=== PATIENT | female | born 2000 | race Caucasian/White ===

== ENCOUNTER → 2021-06-20 12:19 | Outpatient (CLI) | payer OTHER, SELFPAY ==
[2021-06-21 09:31] LABS: Strep Grp B PCR NEG for Grp B Strep
== END ==
PROVIDERS: Referring Provider Obstetrics & Gynecology; Visit Provider Obstetrics & Gynecology
DX: Z34.03 Encounter for supervision of normal first pregnancy, third trimester (principal); Z3A.36 36 weeks gestation of pregnancy
CPT/HCPCS: 87653

== ENCOUNTER → 2021-06-27 11:04 | Outpatient (CLI) | payer OTHER, SELFPAY ==
[2021-06-27 13:27] LABS: Hematocrit 30.3 % (36-46); Hemoglobin 10.1 g/dL (12.0-16.0)
[2021-06-27 14:07] LABS: GTT (PREG) 1 Hour PP 50gm Dose 121 mg/dL (76-139)
== END ==
PROVIDERS: Referring Provider Obstetrics & Gynecology; Visit Provider Obstetrics & Gynecology
DX: Z34.03 Encounter for supervision of normal first pregnancy, third trimester (principal)
CPT/HCPCS: 36415; 82950; 85014; 85018

== ENCOUNTER 2021-07-18 11:19 | Outpatient (CLI) | payer OTHER, SELFPAY | END 2021-07-18 12:11 | disposition home or self-care (01) | LOC: LABOR 11:24 → OB 07-19 09:53 | PROVIDERS: Referring Provider Obstetrics & Gynecology; Visit Provider Obstetrics & Gynecology | DX: O48.0 Post-term pregnancy (principal); Z3A.40 40 weeks gestation of pregnancy | CPT/HCPCS: G0378; G0379 ==

== ENCOUNTER 2021-07-19 04:46 | Inpatient (IN) | payer OTHER, SELFPAY ==
[2021-07-19 05:52] VITALS: BP 129/88
[2021-07-19 06:14] LABS: Add Manual Diff / Slide Review NO; Basophils Absolute Auto 0 /uL (0-100); Basophils Percent Auto 0.5 % (0-2); Eosinophils Absolute Auto 100 /uL (0-450); Eosinophils Percent Auto 0.7 % (2-4); Hematocrit 35.6 % (36-46); Hemoglobin 11.5 g/dL (12.0-16.0); Lymphocytes Absolute Auto 1000 /uL (1100-4500); Lymphocytes Percent Auto 13.3 % (25-40); Mean Corpuscular HGB Conc 32.4 % (30-36); Mean Corpuscular Hemoglobin 26.6 PG (26-34); Mean Corpuscular Volume 82.1 fL (80-100); Monocytes Absolute Auto 900 /uL (0-900); Monocytes Percent Auto 11.5 % (3-14); Neutrophils Absolute Auto 5800 /uL (1500-7000); Platelet Count 251 X10^3/uL (150-400); Red Blood Cell Count 4.34 X10^6/uL (4.0-5.2); Red Cell Distribution Width 20.9 % (11.6-14.8); White Blood Cell Count 7.8 X10^3/uL (4.5-11.0)
[2021-07-19 06:25] LABS: COVID19 -Nasal RAPID Negative (Negative)
[2021-07-19 07:29] LABS: Anisocytosis 1+
[2021-07-19] MEDS: ONDANSETRON 4 MG/2 ML INJ IV ×2 (08:37→18:16)
[2021-07-19] MEDS: LACTATED RINGERS 1,000 ML 100 ML IV ×2 (08:41→09:45)
--- NOTE | 2021-07-19 09:26 | P.HPOB_ITS ---
OB HPI Date/Time Date of admission: 07/19/21 Date Patient Seen: 07/19/21 Time Patient Seen: 08:30 History of Present Condition Chief complaint: maternity DAVID Calculator Estimated Delivery Date Method Current WG Current Estimate 07/17/21 Ultrasound #1 40w 3d Other Estimates 07/15/21 LMP (Certain) 40w 5d Estimated Gestational Age (weeks): 40 : 1 Para: 0 Narrative: This patient is a 20yo @40+2 presenting in spontaneous labor. The patient reports that contractions began overnight and have slowly intensified. She denies decreased movement, VB, LOF, or PIH symptoms. Her has been obstetrically uncomplicated, though she presented for care at 17 weeks, moved at the end of her second trimester to [facility] from [place], and presented to transfer care at 36 weeks. She has no other significant medical, surgical, or family history. care: limited care and initiated at week # (17) Dating criteria OB: based on 2nd trimester US only Ultrasounds: normal mid trimester US Obstetrical complications: none Medical complications OB: none Preadmission Labs Last OB Lab Results: Blood Type A Positive 07/19/21 05:45 07/19/21 Antibody Screen Negative 07/19/21 05:45 07/19/21 Hematocrit 35.6 % (36-46) L 07/19/21 05:45 07/19/21 Hemoglobin 11.5 g/dL (12.0-16.0) L 07/19/21 05:45 07/19/21 Glucose 1 Hour 121 mg/dL (76-139) 06/27/21 12:10 06/27/21 Group B Streptococcus (PCR) Neg for grp b strep 06/20/21 13:34 06/20/21 -: Urine: negative External Labs Blood type OB HPI: A (+) positive -: Antibody screen: negative, HBsAG: negative, HIV: negative, RPR/VDLR: negative, Chlamydia screen: negative, Gonorrhea screen: negative, GBS status: negative and Urine: negative -: Rubella: immune and Varicella: immune Evaluation Evaluation Baseline heart rate: 135 Variability: Moderate (11-25) monitor accelerations: Present Monitor Decelerations: Absent Contraction Frequency (minutes): 3 Category of Tracing: Reactive Status: Category l Dilation (cm): 6 Effacement (%): 100 Dilation: >/=5 cm Effacement: >/=80% station: -1 Position of cervix: mid Consistency: medium Rodríguez score: 10 PFSH Medical History ADHD (~2018) Anorexia nervosa (~2015) Anxiety (~2015) Depression (~2015) PTSD (post-traumatic stress disorder) (~2015) Surgical History Anesthesia H/O wisdom tooth extraction (~2013) History of tonsillectomy (~2015) Family History Mother Mental health problem Brother Mental health problem Sister Mental health problem Sister Mental health problem Grandmother Diabetes mellitus COPD (chronic obstructive pulmonary disease) Social History marital status: household members: spouse pets and animals: No occupational status: unemployed current occupational exposures/hazards: No seatbelt use: always water heater temp set < 120 deg: Yes working smoke detector in home: Yes fire extinguisher in home: Yes carbon monox detector in home: Yes firearms in home: No do you feel safe at home: Yes Smoking Status: Former smoker alcohol intake: former substance use type: marijuana (stopped with ) well-balanced diet: daily or most days daily servings fruits/ve-4 caffeine: Yes (understands less than 200mg) Type(s) of exercise: walking (earlier in now at 36 weeks feet get swolle) Meds Home Medications and Allergies Home Medications Medication Instructions Recorded Confirmed Type prenat.vits,tammy,[id number] 1 tab PO DAILY 06/20/21 07/19/21 History iron PO 07/18/21 History Allergies Allergy/AdvReac Type Severity Reaction Status Date / Time diphtheria,pertussis Allergy Mild Verified 07/18/21 11:08 (acellular),te [From Adacel(Tdap Adolesn/Adult)(PF)] Penicillins Allergy Mild Hives Verified 07/18/21 11:08 Review of Systems Constitutional Constitutional: Reports system reviewed and no additional complaints, except as documented Cardiovascular Cardiovascular: Reports system reviewed and no additional complaints, except as documented Respiratory Respiratory: Reports system reviewed and no additional complaints, except as documented Gastrointestinal Gastrointestinal: Reports as per HPI Genitourinary Genitourinary: Reports as per HPI Musculoskeletal Musculoskeletal: Reports system reviewed and no additional complaints, except as documented Integumentary/Breasts Skin/Breast: Reports system reviewed and no additional complaints, except as documented Neurologic Neurologic: Reports system reviewed and no additional complaints, except as documented OB Exam Resp Effort & Inspection: normal respiratory effort Cardio Rate: regular rate Rhythm: regular rhythm GI Palpation: soft and No tender External Female Exam: Yes normal external appearance Objective Labs Result Diagrams: 07/19/21 05:45 Labs: Laboratory Results - last 24 hr 07/19/21 07/19/21 07/19/21 05:45 05:45 05:45 WBC 7.8 RBC 4.34 Hgb 11.5 L Hct 35.6 L MCV 82.1 MCH 26.6 MCHC 32.4 RDW 20.9 H Plt Count 251 Neut % (Auto) 74.0 Lymph % (Auto) 13.3 L [place] % (Auto) 11.5 Eos % (Auto) 0.7 L Baso % (Auto) 0.5 Neut # (Auto) 5800 Lymph # (Auto) 1000 L [place] # (Auto) 900 Eos # (Auto) 100 Baso # (Auto) 0 RBC Morphology See below Anisocytosis 1+ H SARS-CoV-2 (PCR) Negative Blood Type A Positive Antibody Screen Negative Assessment and Plan Assessment and Plan Assessment and Plan narrative: This patient is admitted in labor, progressing normally with reassuring status. GBS negative. Anticipate - cEFM, toco per protocol - epidural when desired - EFW 7#8
[2021-07-19] MEDS: FENT 2MCG/ML BUPIV 0.125% EPI 200 MCG/100 ML PLAST..BAG 8 MCG EPIDURAL (09:45)
--- NOTE | 2021-07-19 11:18 | PM.OBPNLAB ---
Date/Time Date Patient Seen: 07/19/21 Time Patient Seen: 11:18 Pain Control Pain control: epidural Pelvic Exam Dilation (cm): 6 Effacement (%): 100 station: -1 Amniotic membrane status: Ruptured (AROM for blood tinged fluid) Contractions Contractions on admission: regular Monitor mode: External Pitocin rate (mU/min): 0 Contraction frequency (min): 4 Contraction pattern: Regular Status status: Category l Heart Rate Baseline: 140 Monitor Accelerations: Present Monitor Decelerations: Late (x2) Monitor Variability: Moderate Assessment and Plan Assessment: active labor Plan: continuous present management Comments: Patient comfortable with epidural, AROM performed. For repositioning and peanut ball.
--- NOTE | 2021-07-19 13:27 | PM.OBPNLAB ---
Date/Time Date Patient Seen: 07/19/21 Time Patient Seen: 13:27 Pain Control Pain control: epidural Pelvic Exam Dilation (cm): 8 Effacement (%): 100 station: -1 Amniotic membrane status: Ruptured (AROM for blood tinged fluid) Comments: exam per nursing at 12:30 Contractions Monitor mode: External Contraction frequency (min): 2 Contraction pattern: Regular Status status: Category ll Heart Rate Baseline: 130 Monitor Accelerations: Present Monitor Decelerations: Late Monitor Variability: Moderate Assessment and Plan Assessment: active labor Plan: continuous present management Comments: Repositioning.
--- NOTE | 2021-07-19 16:43 | PM.OBPNLAB ---
Date/Time Date Patient Seen: 07/19/21 Time Patient Seen: 16:43 Pain Control Pain control: epidural Comments: pressure with contractions Pelvic Exam Dilation (cm): 10 Effacement (%): 100 station: +1 Amniotic membrane status: Ruptured (AROM for blood tinged fluid) Contractions Monitor mode: External Contraction frequency (min): 2 Contraction pattern: Regular Status status: Category l Heart Rate Baseline: 130 Monitor Accelerations: Present Monitor Decelerations: Absent Monitor Variability: Moderate Assessment and Plan Assessment: active labor Plan: continuous present management
--- NOTE | 2021-07-19 20:45 | PM.OBPRVD ---
Labor & Delivery Delivery date: 07/19/21 Intrapartal Events: Prolonged 2nd Stage > 2.5 hours Delivery augmentation: rupture of membranes Route of delivery: L&D Laceration Description: Periurethral - 1st Degree Estimated blood loss (mL): 300 Anesthesia Type: Epidural Complications: none Narrative: This patient was admitted in labor. She progressed spontaneously augmented by AROM for slightly bloody fluid. Her course was complicated by intermittently cat 2 EFM with lates that responded readily to repositioning. She underwent a 3 hour second stage complicated by intermittent cat 2 tracing, which again responded to resuscitation throughout and had reassuring signs of good status. She was delivered of a healthy 8#5oz baby boy from the direct OA position, apgars 9+9. The shoulders delivered with ease, there was no nuchal cord, and small 1st degree periurethral and perineal lacerations were spontaneously hemostatic. The placenta delivered spontaneously shortly thereafter, along with some dark old clot and signs of a small placental abruption. The patient had a small piece of retained membranes discovered and removed on exam after a small gush of blood, but responded well to the usual picotin. There were no other intrapartum or immediate complications. [place] Baby 1: Infant gender: Male Presentation: vertex Position: Right Occiput Anterior Placenta delivery description: Spontaneous Cord Vessel Description: 3 Vessels score (1 min): 9 score (5 min): 9 weight: 8 lb 5 oz Plan for aftercare: Routine care
[2021-07-19] MEDS: IBUPROFEN 600 MG TABLET PO (23:12)
[2021-07-20] MEDS: IBUPROFEN 600 MG TABLET PO ×3 (05:02→17:04)
--- NOTE | 2021-07-20 10:47 | P.DS_ITS ---
Discharge Providers Provider Date of admission: 07/19/21 04:46 Discharge Date: 07/20/21 Consults: 07/20/21 20:43 Consult to Plasma Center Technician Routine Comment: Discharge provider: Yuli Bang MD Summary Hospital Course Date Patient Seen: 07/20/21 Time Patient Seen: 10:48 Diagnoses: vaginal delivery Hospital Course: This patient was admitted in labor. The patient progressed spontaneously and after a 3 hour second stage, was delivered of a healthy baby boy without complication. Her course was uncomplicated, and she was discharged on PPD#1 with routine precautions. Peripartum Data Delivery Method: Natural Vaginal Laceration Description: Periurethral - 1st Degree and Perineal - 1st Degree Procedures: Vaginal Delivery complications: none [place] 1: Gender: Male Status at Discharge Cognitive/behavioral status at discharge: oriented Functional status at discharge: independent ambulation Overall status at discharge: patient is progressing back to baseline Time Spent with Patient Time attestation: Total time spent providing and/or coordinating discharge services: Objective Labs Result Diagrams: 07/19/21 05:45 Exam Vital Signs (past 8 hours): 119/73, HR 83, afebrile Narrative Exam Narrative: The patient reports feeling well, with good pain control, moderate lochia, ambulating, voiding, and passing flatus. well. Const General: cooperative, healthy appearing, comfortable and well groomed Resp Effort & Inspection: normal respiratory effort Auscultation: clear to auscultation bilaterally Cardio Rate: regular rate Rhythm: regular rhythm GI Palpation: soft and No tender Other: Fundus firm, well below u External Female Exam: normal external appearance Extrem General: normal to inspection Discharge Plan Discharge Plan Patient Disposition: Home Discharge orders & Medications Prescriptions: Continued iron 45 mg tablet PO 0RF prenat.vits,tammy,[id number] Tablet 1 tab PO DAILY 0RF Follow up/Referrals: Yuli Bang MD [Physician] - 6 Weeks () Diet/Activity/Treatments Diet: Regular Activity: Nothing in the vagina for 6 weeks. Avoid lifting more than 10 pounds for 6 weeks. If you have increasing bleeding, fevers, chills, nausea, vomiting, pain, or any other symptoms, call or come to the emergency room. Skin/Wound/Dressing Care Report to your healthcare provider any signs of infection, such as:: chills, fever, night sweats, increased pain, unusual drainage and unusual redness Visit Report/Discharge Packet Instructions: DI for Labor and Delivery, Vaginal
[2021-07-21 10:18] VITALS: BP 129/88; PULSE 80; RESP 16; TEMP 36.9
[2021-07-21 11:49] VITALS: BP 129/88; PULSE 80; RESP 16; TEMP 36.9
== END 2021-07-21 12:30 | disposition home or self-care (01) | DRG 807 ==
PROVIDERS: Admitting Provider Obstetrics & Gynecology; Referring Provider Obstetrics & Gynecology; Visit Provider Obstetrics & Gynecology
DX: O48.0 Post-term pregnancy (principal); Z37.0 Single live birth; O70.0 First degree perineal laceration during delivery; O63.1 Prolonged second stage (of labor); O76 Abnormality in fetal heart rate and rhythm complicating labor and delivery; Z20.822 Contact with and (suspected) exposure to COVID-19; Z3A.40 40 weeks gestation of pregnancy
CPT/HCPCS: 01967; 36415; 59050; 59410; 85025; 86850; 86900; 86901; 87635; C9803; G0379; J2405

== ENCOUNTER → 2021-12-23 11:15 | Outpatient (CLI) | payer OTHER, SELFPAY ==
[2021-12-23 13:07] LABS: Pregnancy Test Serum,Qual Negative (Negative)
[2021-12-23 13:20] LABS: Prolactin 10.5 ng/mL (3.0-18.6)
[2021-12-23 13:35] LABS: TSH w/ Reflex to FT4 0.58 uIU/mL (0.47-4.68)
[2021-12-23 15:47] LABS: Follicle Stimulating Hormone 3.73 mIU/mL; Luteinizing Hormone 2.68 mIU/mL
[2021-12-23 16:03] LABS: Estradiol, Total 25.7 pg/mL
[2021-12-25 19:35] LABS: Testosterone, Free 1.6 pg/mL (0.0-4.2)
== END ==
PROVIDERS: Referring Provider Obstetrics & Gynecology; Visit Provider Obstetrics & Gynecology
DX: N92.6 Irregular menstruation, unspecified (principal)
CPT/HCPCS: 36415; 82627; 82670; 83001; 83002; 84146; 84402; 84443; 84703

== ENCOUNTER 2022-01-31 16:36 | Emergency (ER) | payer OTHER, SELFPAY ==
[2022-01-31 16:58] VITALS: BP 112/67; PULSE 92; RESP 18; TEMP 36.7; O2SAT 97; BMI 22.1
== END 2022-01-31 20:37 | disposition left against medical advice (07) ==
PROVIDERS: Emergency Provider Emergency Medicine
CPT/HCPCS: 99281

== ENCOUNTER 2022-02-01 09:06 | Emergency (ER) | payer OTHER, SELFPAY ==
[2022-02-01 09:18] VITALS: BP 124/80; PULSE 100; RESP 20; TEMP 36.4; O2SAT 98
--- NOTE | 2022-02-01 09:20 | ED_ITS ---
HPI - Nausea/Vomiting/Diarrhea General Chief complaint: Abdominal Pain Stated complaint: Vomiting Time Seen by Provider: 02/01/22 09:12 Source: patient Mode of arrival: Ambulatory Limitations: no limitations History of Present Illness HPI Narrative: This is a 21-year-old female with history of anxiety and depression who is 6 months with complaint of vomiting. After further discussion patient has been extremely anxious and depressed she states it started during her and she felt a lot of range but did not really know why or how to deal with it. She states she has a longstanding mental health history and had hospitalizations in her preteen inpatient psychiatric facilities. She states mary chamberlain was on multiple medications at that time but ended up stopping them. Her mother is bipolar. She is been on Zoloft as well Wellbutrin but states these both made her feel a lot worse. Patient states she is stopped . She started school this summer, she just started a new job she still caring for her 6-month-old child. She is and states her is aware of what is been going on they talk about it but feels that he is not particularly emotionally supportive. She is a spouse and moved to the region from [place] and does not had any close support locally, she is in touch with her sister by phone who is supportive but is not in touch with her family otherwise. Patient states she has not had any fevers or chills. She had some chest discomfort and tightness in her chest for about 4 days this week, she is had nausea and vomiting and states she has not been able to keep anything down. She states might be from all the anxiety that is happening. She denies any shortness of breath. No syncope but she is felt lightheaded times. She has not really been eating any food she states she is having trouble keeping it down. She states when she throws up it looks like bile. She has been urinating she has not appreciated any dysuria urgency frequency or dark urination. Patient states she has not had a bowel movement in 2 days. She denies abdominal pain but more nausea and epigastric discomfort. No new back or flank pain. No swelling in extremities. Patient is not on any daily medications currently. She denies any suicidal ideation, denies any thoughts of harming others including baby. She states that she would check herself into an inpatient facility if she felt that she was a danger to herself or others. But she is feeling quite distressed emotionally. She did try to set up outpatient counseling but had difficulties scheduling. Patient has not seen a healthcare provider recently she was here but left without being seen after being here for several hours waiting. Patient denies any prior surgeries. No daily medications or other medical issues. Rare tobacco, she does drink alcohol intermittently she states once weekly she will often have too much during that episode, no withdrawals. Patient states occasional THC since she stopped no other illicit or recreational drugs. Related Data Home Medications Medication Instructions Recorded Confirmed prenat.vits,tammy,[id number] 1 tab PO DAILY 06/20/21 12/23/21 iron PO 07/18/21 12/23/21 Previous Rx's Medication Instructions Recorded ondansetron 4 mg disintegrating 4 mg PO QID PRN nausea and 02/01/22 tablet vomiting #5 tabs quetiapine 25 mg tablet (Seroquel) 25 mg PO BEDTIME #20 tabs 02/01/22 Allergies Allergy/AdvReac Type Severity Reaction Status Date / Time diphtheria,pertussis Allergy Mild Verified 01/31/22 16:58 (acellular),te [From Adacel(Tdap Adolesn/Adult)(PF)] Penicillins Allergy Mild Hives Verified 01/31/22 16:58 Review of Systems Review of Systems ROS Unobtainable: All systems reviewed & are unremarkable except as noted in HPI and below Patient History Medical History ADHD (~2018) Anorexia nervosa (~2016) Anxiety (~2016) Depression (~2016) Irregular menses depression PTSD (post-traumatic stress disorder) (~2016) Surgical History Anesthesia H/O wisdom tooth extraction (~2013) History of tonsillectomy (~2015) Family History Mother Mental health problem Brother Mental health problem Sister Mental health problem Sister Mental health problem Grandmother Diabetes mellitus COPD (chronic obstructive pulmonary disease) Social History marital status: household members: spouse pets and animals: No occupational status: unemployed current occupational exposures/hazards: No seatbelt use: always water heater temp set < 120 deg: Yes working smoke detector in home: Yes fire extinguisher in home: Yes carbon monox detector in home: Yes firearms in home: No do you feel safe at home: Yes Smoking Status: Former smoker alcohol intake: former substance use type: marijuana (stopped with ) well-balanced diet: daily or most days daily servings fruits/ve-4 caffeine: Yes (understands less than 200mg) Type(s) of exercise: walking (earlier in now at 36 weeks feet get swolle) Smoking Status: Former smoker tobacco type: cigarettes alcohol intake frequency: 0-2 drinks per day Substance Use Type: marijuana Exam Narrative Exam Narrative: GEN: Thin, well appearing female, alert and oriented x 3, patient appears to be in moderate distress. Patient is tearful intermittently throughout our discussion. HEENT: Atraumatic, pupils are equal round reactive to light, extraocular movements are intact, nares are clear. HEART: Regular rate and rhythm without murmur, clicks, rubs. LUNGS:Lungs clear to auscultation, no wheezes, rales, crackles, chest moves symmetrically ABD:bowel sounds normal, soft, non-tender, no guarding, rebound, rigidity, no masses noted, no hepatosplenomegaly :No CVA tenderness MSCL: Non-tender, no muscle atrophy, muscles strength 5/5 upper and lower extremities, full range of motion, normal gait NEURO:CN 2-12 intact, sensation normal PSYCH: No suicidal ideation or intent no homicidal ideation or intent, patient expresses quite a bit of anxiety, depression, no hallucinations. Patient describes occasional crying jags. Initial Vital Signs Initial Vital Signs: Vital Signs Temperature 97.6 F 02/01/22 09:18 Pulse Rate 100 H 02/01/22 09:18 Respiratory Rate 20 02/01/22 09:18 Blood Pressure 124/80 02/01/22 09:18 Pulse Oximetry 98 02/01/22 09:18 Oxygen Delivery Method 02/01/22 09:18 Course Orders Ordered: ED Orders 02/01/22 10:01 Acetaminophen Stat Complete Blood Count AUTO DIFF Stat Comprehensive Metabolic Panel Stat Ethanol (ETOH) Stat Free T4, Direct Thyroxine Stat Lipase Stat Salicylate Stat TSH w/ Reflex to FT4 Stat 02/01/22 10:19 COVID19 -Nasal RAPID/Pre-Proc Stat Discontinued Medications Sodium Chloride (Normal Saline 0.9%) 1,000 mls @ 1,000 mls/hr IV BOLUS ONE Stop: 02/01/22 10:46 Last Infusion: 02/01/22 12:02 Dose: 0 mls/hr Documented By: Admin: 02/01/22 10:17 Dose: 1,000 mls/hr Documented By: DANK Ondansetron HCl (Ondansetron 4 Mg/2 Ml Inj) 4 mg IV NOW ONE Stop: 02/01/22 09:49 Last Admin: 02/01/22 10:17 Dose: 4 mg Documented By: DANK Vital Signs Vital signs: Vital Signs - 8 hr 02/01/22 11:57 Temperature 97.9 F Pulse Rate 68 Respiratory Rate 19 Blood Pressure 107/55 L Pulse Oximetry 98 Oxygen Delivery Method Room Air MDM - Nausea/Vomiting/Diarrhea Lab Data Result diagrams: 02/01/22 10:01 02/01/22 10:01 Labs: Lab Results 02/01/22 02/01/22 02/01/22 Range/Units 09:15 10:01 10:01 WBC 5.9 (4.5-11.0) X10^3/uL RBC 4.89 (4.0-5.2) X10^6/uL Hgb 14.4 (12.0-16.0) g/dL Hct 42.2 (36-46) % MCV 86.3 (80-100) fL MCH 29.4 (26-34) PG MCHC 34.1 (30-36) % RDW 13.3 (11.6-14.8) % Plt Count 210 (150-400) X10^3/uL Neut % (Auto) 79.3 H (50-75) % Lymph % (Auto) 13.5 L (25-40) % Perry % (Auto) 5.4 (3-14) % Eos % (Auto) 0.9 L (2-4) % Baso % (Auto) 0.9 (0-2) % Neut # (Auto) 4700 (7791-3791) /uL Lymph # (Auto) 800 L (5100-2728) /uL Perry # (Auto) 300 (0-900) /uL Eos # (Auto) 100 (0-450) /uL Baso # (Auto) 100 (0-100) /uL Sodium 142 (137-145) mmol/L Potassium 3.8 (3.4-5.1) mmol/L Chloride 102 (98-107) mmol/L Carbon Dioxide 21 L (22-32) mmol/L BUN 12 (7-17) mg/dL Creatinine 0.56 (0.52-1.04) mg/dL Estimated GFR > 60 (>60) mL/min BUN/Creatinine Ratio 21.4 (6-22) Glucose 72 (70-100) mg/dL Calcium 9.3 (8.4-10.2) mg/dL Total Bilirubin 1.0 (0.2-1.3) mg/dL AST 22 (14-36) IU/L ALT 16 (<35) IU/L Alkaline Phosphatase 61 (38-126) U/L Total Protein 8.0 (6.3-8.2) g/dL Albumin 5.0 (3.5-5.0) g/dL Globulin 3.0 (1.7-4.1) g/dL Albumin/Globulin Ratio 1.7 (1.0-2.8) Lipase 111 (23-300) U/L TSH (0.47-4.68) uIU/mL Free T4 (0.78-2.19) ng/dL Urine RBC 1-5/hpf (0-5/HPF) Urine WBC 1-5/hpf (0-5/HPF) Ur Squamous Epith Cells 1-5 /hpf (0-5/HPF) Urine Bacteria None seen (None) Urine Mucus 2+ H (Negative) Ur Culture Indicated? Cult not indicated Salicylates < 1.0 (<20) mg/dL Acetaminophen < 10 (10-30) ug/mL Ethyl Alcohol < 10 ( - 10) mg/dL SARS-CoV-2 (PCR) (Negative) 02/01/22 02/01/22 Range/Units 10:01 10:19 WBC (4.5-11.0) X10^3/uL RBC (4.0-5.2) X10^6/uL Hgb (12.0-16.0) g/dL Hct (36-46) % MCV (80-100) fL MCH (26-34) PG MCHC (30-36) % RDW (11.6-14.8) % Plt Count (150-400) X10^3/uL Neut % (Auto) (50-75) % Lymph % (Auto) (25-40) % Perry % (Auto) (3-14) % Eos % (Auto) (2-4) % Baso % (Auto) (0-2) % Neut # (Auto) (5606-3100) /uL Lymph # (Auto) (7964-9078) /uL Perry # (Auto) (0-900) /uL Eos # (Auto) (0-450) /uL Baso # (Auto) (0-100) /uL Sodium (137-145) mmol/L Potassium (3.4-5.1) mmol/L Chloride (98-107) mmol/L Carbon Dioxide (22-32) mmol/L BUN (7-17) mg/dL Creatinine (0.52-1.04) mg/dL Estimated GFR (>60) mL/min BUN/Creatinine Ratio (6-22) Glucose (70-100) mg/dL Calcium (8.4-10.2) mg/dL Total Bilirubin (0.2-1.3) mg/dL AST (14-36) IU/L ALT (<35) IU/L Alkaline Phosphatase (38-126) U/L Total Protein (6.3-8.2) g/dL Albumin (3.5-5.0) g/dL Globulin (1.7-4.1) g/dL Albumin/Globulin Ratio (1.0-2.8) Lipase (23-300) U/L TSH 0.46 L (0.47-4.68) uIU/mL Free T4 1.31 (0.78-2.19) ng/dL Urine RBC (0-5/HPF) Urine WBC (0-5/HPF) Ur Squamous Epith Cells (0-5/HPF) Urine Bacteria (None) Urine Mucus (Negative) Ur Culture Indicated? Salicylates (<20) mg/dL Acetaminophen (10-30) ug/mL Ethyl Alcohol ( - 10) mg/dL SARS-CoV-2 (PCR) Negative (Negative) Point of Care Testing Test Results Negative Urine Dip Bedside Urine Glucose Negative Bedside Urine Bilirubin - Negative Bedside Urine Ketone +++ 80 Urine Specific [place] 1.030 Bedside Urine Occult Blood +++ Bedside Urine pH 6.0 Bedside Urine Protein + 30 Bedside Urine Urobilinogen - Negative Bedside Urine Nitrite - Negative Bedside Urine Leukocytes - Negative Esterase ECG Data Attestation: I personally reviewed and interpreted this ECG as follows: Interpretation: Sinus rhythm with sinus arrhythmia rate of 62 OH 140, QRS of 94 and QTC of 416. No acute ST changes appreciated. MDM Narrative Medical decision making narrative: This is a 21-year-old female with likely acute on chronic anxiety and depression likely worsened by her recent and state. Patient did attempt to get outpatient therapy but was unsuccessful. She is also been having some nausea and vomiting in the past week, test is negative, no obvious signs infection in urine, labs show no significant changes TSH was low but reflex T4 is appropriate making this unlikely cause of her symptomatology and does not have other symptoms consistent with hyperthyroidism at this time. Patient does not feel that she needs inpatient at this time she is able to contract for safety, she states she has a plan that if she felt unsafe for that she would harm the baby or someone else that she would set baby down in a safe place or with a safe person and go check herself in inpatient facility patient has tried to medications in the past which made her symptoms worse discussed that there are many different options available and I think she would benefit. [facility] Discussed having the [facility] contact her tomorrow for short-term follow-up and counseling. This was arranged. Patient feels comfortable with this plan. She was given a short prescription for Zofran as well as low-dose Seroquel to start medication. Patient's EKG does not show QT prolongation she is had this medication here in the department. Return precautions were discussed. Patient states she can set baby down and get assistance if she feels that she is unsafe for herself or baby at any time, she contracts for safety, she is does not wish for inpatient place him today and I think she is appropriate for discharge but has been set up with a via away contact tomorrow as well as plan for primary care follow-up and discussed she may benefit from psychiatry follow-up based on her past history as well. Discharge Plan Departure Patient Disposition: Home Clinical Impression: depression, Anxiety, Vomiting Instructions: DI for Depression Activity Restrictions/Additional Instructions: and the . Often causes women to have increased anxiety and depression. This is caused by chemical imbalances that are often responsive to medications and counseling. Please follow-up with your primary care provider at the [facility] or locally to continue to monitor medication and prescribed as needed as well as assist with counseling and follow-up. Please call on Thursday morning to set up an appointment. You have been given a prescription for little bit of antinausea medication. You may take 1 tablet every 6 hours as needed. You have also been given a prescription for medication for her mood and anxiety this medication can make you sleepy make sure someone around to help take care of baby especially the 1st time you take it. You may take 1 tablet at night. If this medication makes your symptoms significantly worse please stop it. It can also be titrated or increased by quite a bit if it is helpful. Prescriptions were printed today. [facility] will call tomorrow between noon and 1:00 p.m. on February 02. If you miss their call please call back. If you're feeling suicidal or having suicidal thoughts, contact the suicide hotline (this is also a self-referral hotline for resources and counseling): . Please return if you are having thoughts of harming yourself, your baby or other individuals, if you are feeling increasingly anxious and depressed, feel unsafe at any time, have persistent vomiting, passing out, new chest pain or shortness of breath, black or bloody stools, fevers or other new or concerning symptoms. Prescriptions: New ondansetron 4 mg tablet,disintegrating 4 mg PO QID PRN (Reason: nausea and vomiting) Qty: 5 0RF quetiapine [Seroquel] 25 mg tablet 25 mg PO BEDTIME Qty: 20 0RF No Action iron 45 mg tablet PO prenat.vits,tammy,[id number] Tablet 1 tab PO DAILY Referrals: ProviderBebo [Primary Care Provider] - Visit Report Forms: Patient Portal/API
[2022-02-01 09:56] LABS: Mucus Urine 2+ (Negative); RBC Urine 1-5/HPF (0-5/HPF); Squamous Epithelial Cell Urine 1-5 /HPF (0-5/HPF); WBC Urine 1-5/HPF (0-5/HPF)
[2022-02-01 09:57] LABS: Bacteria Urine None Seen; Culture Indicated Urine Cult Not Indicated
[2022-02-01 10:11] LABS: Add Manual Diff / Slide Review NO; Basophils Absolute Auto 100 /uL (0-100); Basophils Percent Auto 0.9 % (0-2); Eosinophils Absolute Auto 100 /uL (0-450); Eosinophils Percent Auto 0.9 % (2-4); Hematocrit 42.2 % (36-46); Hemoglobin 14.4 g/dL (12.0-16.0); Lymphocytes Absolute Auto 800 /uL (1100-4500); Lymphocytes Percent Auto 13.5 % (25-40); Mean Corpuscular HGB Conc 34.1 % (30-36); Mean Corpuscular Hemoglobin 29.4 PG (26-34); Mean Corpuscular Volume 86.3 fL (80-100); Monocytes Absolute Auto 300 /uL (0-900); Monocytes Percent Auto 5.4 % (3-14); Neutrophils Absolute Auto 4700 /uL (1500-7000); Neutrophils Percent Auto 79.3 % (50-75); Platelet Count 210 X10^3/uL (150-400); Red Blood Cell Count 4.89 X10^6/uL (4.0-5.2); Red Cell Distribution Width 13.3 % (11.6-14.8); White Blood Cell Count 5.9 X10^3/uL (4.5-11.0)
[2022-02-01] MEDS: ONDANSETRON 4 MG/2 ML INJ IV (10:17)
[2022-02-01] MEDS: SODIUM CHLORIDE 0.9% 1,000 ML 1000 ML IV (10:17)
[2022-02-01 10:25] LABS: Acetaminophen < 10 ug/mL (10-30); Alanine Aminotransferase 16 IU/L (<35); Albumin Globulin Ratio 1.7 (1.0-2.8); Alkaline Phosphatase 61 U/L (38-126); Aspartate Aminotransferase 22 IU/L (14-36); BUN Creatinine Ratio 21.4 (6-22); Blood Urea Nitrogen 12 mg/dL (7-17); Calcium 9.3 mg/dL (8.4-10.2); Carbon Dioxide 21 mmol/L (22-32); Chloride 102 mmol/L (98-107); Estimated Glomerular Filt Rate > 60 mL/min (>60); Ethanol (ETOH) < 10 mg/dL; Glucose 72 mg/dL (70-100); HEMOLYSIS < 15 (0-50); Lipase 111 U/L (23-300); Potassium 3.8 mmol/L (3.4-5.1); Salicylate < 1.0 mg/dL (<20); Sodium 142 mmol/L (137-145)
[2022-02-01 10:46] LABS: COVID19 -Nasal RAPID Negative (Negative)
[2022-02-01 11:07] LABS: TSH w/ Reflex to FT4 0.46 uIU/mL (0.47-4.68)
[2022-02-01 11:33] LABS: Free T4, Direct Thyroxine 1.31 ng/dL (0.78-2.19)
[2022-02-01 11:57] VITALS: BP 107/55; PULSE 68; RESP 19; TEMP 36.6; O2SAT 98
--- NOTE | 2022-02-01 12:07 | PC.NURSE ---
booklets and support information given to patient for post .
== END 2022-02-01 12:20 | disposition home or self-care (01) ==
PROVIDERS: Emergency Provider Emergency Medicine
DX: O99.345 Other mental disorders complicating the puerperium (principal); F53.0 Postpartum depression; F41.9 Anxiety disorder, unspecified; R11.10 Vomiting, unspecified; Z20.822 Contact with and (suspected) exposure to COVID-19
CPT/HCPCS: 36415; 80053; 80320; 80329; 81003; 81015; 81025; 83690; 84439; 84443; 85025; 87635; 93005; 93010; 96361; 96374; 99284; C9803; G0480; J2405

== ENCOUNTER 2023-03-26 19:31 | Emergency (ER) | payer OTHER, SELFPAY ==
[2023-03-26 19:34] VITALS: BP 132/65; PULSE 91; RESP 16; TEMP 36.8; O2SAT 98; BMI 25.6
--- NOTE | 2023-03-26 20:12 | ED.GENADULT ---
HPI - General Adult General Chief complaint: Upper Respiratory Symptoms Stated complaint: Cold symptons Time Seen by Provider: 03/26/23 20:03 Source: patient Mode of arrival: Ambulatory History of Present Illness HPI narrative: Otherwise healthy 22-year-old female who is here for evaluation of a sore throat for the past couple days. Has had cough and congestion the past couple days as well. Not been feeling well for a couple weeks. Related Data Home Medications Medication Instructions Recorded Confirmed prenat.vits,tammy,[id number] 1 tab PO DAILY 06/20/21 12/23/21 iron PO 07/18/21 12/23/21 Previous Rx's Medication Instructions Recorded ondansetron 4 mg disintegrating 4 mg PO QID PRN nausea and 02/01/22 tablet vomiting #5 tabs quetiapine 25 mg tablet (Seroquel) 25 mg PO BEDTIME #20 tabs 02/01/22 Allergies Allergy/AdvReac Type Severity Reaction Status Date / Time diphtheria,pertussis Allergy Mild Verified 01/31/22 16:58 (acellular),te [From Adacel(Tdap Adolesn/Adult)(PF)] Penicillins Allergy Mild Hives Verified 01/31/22 16:58 Review of Systems Constitutional Constitutional: Reports system reviewed and no additional complaints, except as documented ENT Ears, Nose, Mouth, and Throat: Reports system reviewed and no additional complaints, except as documented Respiratory Respiratory: Reports system reviewed and no additional complaints, except as documented Integumentary/Breasts Skin/Breast: Reports system reviewed and no additional complaints, except as documented Allergic/Immunologic Allergic/Immunologic: Reports system reviewed and no additional complaints, except as documented Patient History Medical History Irregular menses depression PTSD (post-traumatic stress disorder) (~2016) Depression (~2016) Anxiety (~2016) Anorexia nervosa (~2016) ADHD (~2018) Surgical History Anesthesia H/O wisdom tooth extraction (~2013) History of tonsillectomy (~2015) Family History Mother Mental health problem Brother Mental health problem Sister Mental health problem Sister Mental health problem Grandmother Diabetes mellitus COPD (chronic obstructive pulmonary disease) Social History marital status: household members: spouse pets and animals: No occupational status: unemployed current occupational exposures/hazards: No seatbelt use: always water heater temp set < 120 deg: Yes working smoke detector in home: Yes fire extinguisher in home: Yes carbon monox detector in home: Yes firearms in home: No do you feel safe at home: Yes Smoking Status: Former smoker alcohol intake: former substance use type: marijuana well-balanced diet: daily or most days daily servings fruits/ve-4 caffeine: Yes (understands less than 200mg) Type(s) of exercise: walking Smoking Status: Former smoker tobacco type: cigarettes alcohol intake frequency: 0-2 drinks per day Substance Use Type: marijuana Exam Initial Vital Signs Initial Vital Signs: Vital Signs Temperature 98.2 F 03/26/23 19:34 Pulse Rate 91 H 03/26/23 19:34 Respiratory Rate 16 03/26/23 19:34 Blood Pressure 132/65 03/26/23 19:34 Pulse Oximetry 98 03/26/23 19:34 Oxygen Delivery Method Room Air 03/26/23 19:34 Const General: cooperative, comfortable and No ill appearing HENMT Head: normal to inspection and normocephalic Ears: TM's normal bilaterally Mouth: oral mucosae normal and moist mucous membranes Throat: posterior oropharynx normal Resp Effort & Inspection: normal respiratory effort Auscultation: clear to auscultation bilaterally Cardio Rate: regular rate Rhythm: regular rhythm Skin General: no rashes or lesions noted Neuro General: patient alert, patient awake, patient oriented x3 and moves all extremities Extrem General: capillary refill normal Course Orders Ordered: ED Orders 03/26/23 20:08 Respiratory Panel (Film Array) Stat Strep Grp A by PCR Rapid Stat Vital Signs Vital signs: Vital Signs - 8 hr 03/26/23 19:34 03/26/23 22:18 Temperature 98.2 F 98.7 F Pulse Rate 91 H 87 Respiratory Rate 16 16 Blood Pressure 132/65 125/71 Pulse Oximetry 98 99 Oxygen Delivery Method Room Air Room Air Medical Decision Making Lab Data Labs: Lab Results 03/26/23 Range/Units 20:08 Chlamy pneumoniae PCR Not detected (Not Detect) Adenovirus (PCR) Not detected (Not Detect) B.parapertussis DNA PCR Not detected (Not Detecte) Coronavirus OC43 (PCR) Not detected (Not Detect) Coronavirus HKU1 (PCR) Not detected (Not Detect) Coronavirus 229E (PCR) Not detected (Not Detect) SARS-CoV-2 (PCR) Not detected (Not Detecte) Coronavirus NL63 (PCR) Not detected (Not Detect) Human Metapneumovir PCR Not detected (Not Detect) Influenza Type A (PCR) Not detected (Not Detect) Influenza Type B (PCR) Not detected (Not Detect) M. pneumoniae (PCR) Not detected (Not Detect) Parainfluenza 1 (PCR) Not detected (Not Detect) Parainfluenza 2 (PCR) Not detected (Not Detect) Parainfluenza 3 (PCR) Not detected (Not Detect) Parainfluenza 4 (PCR) Not detected (Not Detect) RSV (PCR) Not detected (Not Detect) Entero/Rhino (PCR) Detected H (Not Detect) Group A Strep (PCR) Negative (Negative) MDM Narrative Medical decision making narrative: Rapid strep negative. Is positive for rhino virus which is most likely the cause of her presenting symptoms. No indication for antibiotics. Respiratory distress. I discussed this with the patient. We discussed return precautions and follow-up instructions. She expressed understanding and agreement. Discharge Plan Departure Patient Disposition: Home Clinical Impression: Rhinovirus infection Instructions: DI for Viral Upper Respiratory Infection -- Adult Activity Restrictions/Additional Instructions: Your positive for rhino virus which is very common virus that causes upper respiratory infections. You can take Tylenol/ibuprofen for any fevers or discomfort. Be sure that you were increasing your fluid intake. Return to the emergency department for new or worsening symptoms. Prescriptions: No Action iron 45 mg tablet PO prenat.vits,tammy,[id number] Tablet 1 tab PO DAILY ondansetron 4 mg tablet,disintegrating 4 mg PO QID PRN (Reason: nausea and vomiting) Qty: 5 0RF quetiapine [Seroquel] 25 mg tablet 25 mg PO BEDTIME Qty: 20 0RF Referrals: ProviderBebo [Primary Care Provider] - Stand Alone Forms: Patient Portal/API
[2023-03-26 20:50] LABS: Strep Grp A by PCR Rapid Negative (Negative)
[2023-03-26 21:07] LABS: Adenovirus Not Detected (Not Detect); B. parapertussis Not Detected (Not Detecte); Bordetella pertussis Not Detected (Not Detect); Chlamydophila pneumoniae Not Detected (Not Detect); Coronavirus 229E Not Detected (Not Detect); Coronavirus HKU1 Not Detected (Not Detect); Coronavirus NL 63 Not Detected (Not Detect); Coronavirus OC43 Not Detected (Not Detect); Human Metapneumovirus Not Detected (Not Detect); Human Rhinovirus/Enterovirus Detected (Not Detect); Influenza A Not Detected (Not Detect); Influenza B Not Detected (Not Detect); Mycoplasma pneumoniae Not Detected (Not Detect); Parainfluenza Virus 1 Not Detected (Not Detect); Parainfluenza Virus 2 Not Detected (Not Detect); Parainfluenza Virus 3 Not Detected (Not Detect); Parainfluenza Virus 4 Not Detected (Not Detect); Respiratory Syncytial Virus Not Detected (Not Detect); SARS- CoV-2 Not Detected (Not Detecte)
[2023-03-26 22:18] VITALS: BP 125/71; PULSE 87; RESP 16; TEMP 37.1; O2SAT 99
== END 2023-03-26 22:18 | disposition home or self-care (01) ==
PROVIDERS: Emergency Provider Emergency Medicine
DX: J06.9 Acute upper respiratory infection, unspecified (principal); B34.8 Other viral infections of unspecified site; Z20.822 Contact with and (suspected) exposure to COVID-19
CPT/HCPCS: 87633; 87651; 99281; 99282